=== PATIENT | female | born 1950 | race Caucasian/White ===

== ENCOUNTER 2016-10-13 10:39 | Inpatient (IN) | payer MEDICARE ==
[2016-10-13] MEDS ORDERED: ALPRAZolam 0.5 MG TAB PO PRN (11:07)
[2016-10-13] MEDS ORDERED: SODIUM CHLORIDE 0.9% 1,000 ML in EMPTY BAG 1 BAG IV ONE (11:07)
[2016-10-13] MEDS ORDERED: ASPIRIN 325 MG TAB PO STA (11:07)
[2016-10-13] MEDS ORDERED: ALPRAZolam 0.25 MG TAB PO PRN (11:07)
[2016-10-13] MEDS ORDERED: NITROGLYCERIN SL TABS 0.4 MG TAB SUBLINGUAL PRN ×2 (11:07→15:19)
[2016-10-13] MEDS ORDERED: ATORVASTATIN 80 MG TAB PO STA (11:07)
[2016-10-13] MEDS ORDERED: ALPRAZolam 0.25 MG TAB ONE (11:34)
[2016-10-13] MEDS ORDERED: HEPARIN SODIUM,PORCINE/D5W PMX 25,000 UNIT in DEXTROSE/WATER 1 500ML.BAG IV SCH (12:00)
--- NOTE | 2016-10-13 14:07 | P.HPIM ---
History of Present Illness H&P Date: 10/13/16 Chief Complaint: non-ST elevation OH post left heart catheterization with 2 vessel CAD This is a 66-year-old female one of Dr. Brownlee with a previous medical history significant for hypertension and hypertensive cardio vascular disease, history of chronic tobacco use and dependence with COPD, patient presented to the ER at [facility] because of the left jaw pain associated with chest pressure radiating to the left shoulder or left arm, patient went and saw Dr. 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 Review of Systems Constitutional: Denies anorexia, Denies chronic headaches, Denies lethargy, Denies malaise, Denies weakness, Denies weight gain, Denies weight loss Eyes: denies blurred vision, denies bulging eye, denies decreased vision, denies diplopia Ears: deny: decreased hearing Ears, nose, mouth and throat: Denies dental pain, Denies neck lump, Denies sore throat, Denies vertigo Cardiovascular: Reports chest pain, Reports decreased exercise tolerance, Reports dyspnea on exertion, Reports shortness of breath, Denies orthopnea, Denies paroxysmal nocturnal dyspnea, Denies phlebitis, Denies rapid heart beat, Denies syncope Respiratory: Denies congestion, Denies cough with sputum, Denies home oxygen, Denies sleep apnea, Denies snoring, Denies wheezing Gastrointestinal: Denies abdominal pain, Denies bloating, Denies BRBPR, Denies early satiety, Denies excessive gas, Denies melena, Denies nausea, Denies vomiting Genitourinary: Denies dysuria, Denies hematuria Musculoskeletal: Denies myalgias Musculoskeletal: absent: ankle pain, ankle stiffness, ankle swelling, elbow pain , elbow stiffness, elbow swelling, foot pain, foot stiffness, foot swelling, hand pain, hand stiffness, hand swelling, hip pain, hip stiffness, hip swelling , knee pain, knee stiffness, knee swelling, shoulder pain, shoulder stiffness, shoulder swelling, wrist pain, wrist stiffness, wrist swelling Integumentary: Denies pruritus, Denies rash Neurological: Denies numbness, Denies weakness Psychiatric: Denies anxiety, Denies depression Endocrine: Denies fatigue, Denies weight change Past Medical History Past Medical History: Coronary Artery Disease (CAD), COPD, Hyperlipidemia, Hypertension, Osteoarthritis (OA) Past Surgical History: Adenoidectomy, Tonsillectomy Additional Past Surgical History / Comment(s): Tubal with subsequent surgery Past Psychological History: No Psychological Hx Reported Smoking Status: Current every day smoker (Patient has smoked a pack every day for 45 years and says she has quit smoking when she came to the hospital.) Past Alcohol Use History: None Reported Past Drug Use History: Marijuana - Past Family History Mother Family Medical History: COPD (Mother at age of 71 from COPD.) Father Family Medical History: COPD (Father at age 53 from alcohol as him and oxygen use.) Brother(s) Family Medical History: No Reported History (Patient has one brother no major medical problems) Sister(s) Family Medical History: No Reported History (Patient has one sister no major medical problems.) Medications and Allergies Home Medications Medication Instructions Recorded Confirmed Type Aspirin 81 mg PO DAILY 10/13/16 10/13/16 History Metoprolol Succinate (ER) [Toprol 25 mg PO DAILY 10/13/16 10/13/16 History Xl] Naproxen Sodium [Aleve] 220 mg PO Q12HR PRN 10/13/16 10/13/16 History Allergies Allergy/AdvReac Type Severity Reaction Status Date / Time Sulfa (Sulfonamide Allergy Rash/Hives Verified 10/13/16 11:36 Antibiotics) Physical Exam Vitals: Vital Signs Temp Pulse Resp BP Pulse Ox 10/13/16 12:03 157/82 10/13/16 11:41 98.5 F 63 16 181/90 99 Intake and Output 10/12/16 10/13/16 10/13/16 22:59 06:59 14:59 Other: Weight 75.296 kg Patient Weight 10/14/16 06:59 Weight 75.296 kg - Constitutional General appearance: average body habitus, no acute distress - EENT Eyes: anicteric sclerae, EOMI, PERRLA, no ptosis, no scleral icterus, normal appearance ENT: hearing grossly normal, NA/AT, normal oropharynx, no thrush Ears: bilateral: normal - Neck Neck: no lymphadenopathy, normal ROM, no stridor, no thyromegaly Carotids: bilateral: upstroke normal Thyroid: bilateral: normal size - Respiratory Respiratory: bilateral: diminished, negative: dullness, rales, rhonchi, wheezing , prolonged expiration, prolonged inspiration - Cardiovascular Rhythm: regular Heart sounds: normal: S1, S2 Abnormal Heart Sounds: systolic murmur, no rub, no S3 Gallop, no click - Gastrointestinal General gastrointestinal: normal bowel sounds, soft, no splenomegaly, no tenderness, no umbilical hernia, no ventral hernia - Integumentary Integumentary: normal, normal turgor - Neurologic Neurologic: CNII-XII intact - Musculoskeletal Musculoskeletal: strength equal bilaterally - Psychiatric Psychiatric: A&O x's 3, appropriate affect, intact judgment & insight Thrombosis Risk Factor Assmnt - DVT/VTE Prophylaxis DVT/VTE Prophylaxis: Pharmacologic Prophylaxis ordered, Mechanical Prophylaxis ordered Assessment and Plan Plan: assessment and plan: 1. Non-ST elevation OH post left heart catherization that showed two-vessel CAD of the RCA with a thrombus and LCx.. Patient is scheduled to go for of the RCA with thrombus extraction, Dr. Vitale will do the procedure, patient is aware of the diagnosis as well as the intervention. She will be maintained on aspirin, Plavix, beta lucía, Lipitor 80 mg once every day, total lifestyle changes and risk factor modification including smoking cessation. 2. Hypertension and hypertensive cardiovascular disease. Continue patient on Toprol. 3. Chronic tobacco use and dependence. Smoking cessation and counseling. 4. DVT prophylaxis. Continue bilateral SCDs and bilateral knee-high AUDRA hose. 5. GI prophylaxis. Continue patient on PPI. 6. Patient is full code. 7. Admit to inpatient. Estimate length of stay 2 midnights.
[2016-10-13] MEDS ORDERED: PRASUGREL 10 MG TAB PO ONE (14:25)
[2016-10-13] MEDS ORDERED: fentaNYL (PF) 50 MCG/ML 2 ML AMP IV ONE (14:28)
[2016-10-13] MEDS ORDERED: diphenhydrAMINE 50 MG/ML 1 ML VIAL IVP ONE (14:28)
[2016-10-13] MEDS ORDERED: LIDOCAINE 2% INJ 20 MG/ML SQ ONE (14:34)
[2016-10-13] MEDS ORDERED: BIVALIRUDIN BOLUS 250 MG/50 ML IV ONE (14:35)
[2016-10-13] MEDS ORDERED: BIVALIRUDIN 250 MG in SODIUM CHLORIDE 0.9% 50 ML IV ONE (14:36)
[2016-10-13] MEDS: NITROGLYCERIN 1000MCG/10ML SYRINGE INTRACORON ONE ×2 (14:39→14:57)
[2016-10-13] MEDS ORDERED: IOHEXOL 350 MG/ML 125ML BOTTLE INJ ONE (15:13)
[2016-10-13] MEDS ORDERED: MAG HYDROX/AL HYDROX/SIMETH 30 ML CUP PO PRN (15:19)
[2016-10-13] MEDS ORDERED: ATROPINE SULFATE 0.1 MG/ML 10ML SYRINGE IV PRN (15:19)
[2016-10-13] MEDS ORDERED: RX INFO: IV CONTRAST WAS GIVEN 1 EACH MISC MISCELLANE PRN (15:19)
[2016-10-13] MEDS ORDERED: SODIUM CHLORIDE 0.9% 1,000 ML IV SCH (15:30)
[2016-10-13] MEDS ORDERED: HYDROmorphone 1 MG/ML 1 ML SYRINGE IVP STA (16:03)
[2016-10-13] MEDS ORDERED: LISINOPRIL 5 MG TAB PO STA (16:04)
[2016-10-13] MEDS ORDERED: ZOLPIDEM 5 MG TAB PO PRN (21:00)
[2016-10-13] MEDS: LISINOPRIL 5 MG TAB PO SCH (21:06)
[2016-10-14 06:46] LABS: Anion Gap 8 mmol/L; Blood Urea Nitrogen 18 mg/dL (7-17); Calcium 9.2 mg/dL (8.4-10.2); Carbon Dioxide 20 mmol/L (22-30); Chloride 109 mmol/L (98-107); Glucose 86 mg/dL (74-99); Non-African American GFR(MDRD) 50 (>60 ml/min/1.73 sqM); Potassium 4.5 mmol/L (3.5-5.1); Sodium 137 mmol/L (137-145)
[2016-10-14 08:22] VITALS: BP 125/58; PULSE 80; RESP 20; TEMP 97
[2016-10-14] MEDS: LISINOPRIL 5 MG TAB PO SCH (08:26)
[2016-10-14] MEDS ORDERED: METOPROLOL SUCCINATE (ER) 25 MG TAB.ER.24H PO SCH (09:00)
[2016-10-14] MEDS ORDERED: PRASUGREL 10 MG TAB PO SCH (09:00)
[2016-10-14] MEDS ORDERED: ASPIRIN 81 MG CHEW PO SCH (09:00)
--- NOTE | 2016-10-14 09:33 | PTCA ---
Mrs. Hooks is a 66 year old female with known history of chronic tobacco use who presented to the hospital at [facility] with symptoms of chest discomfort with mild troponin elevation. She underwent cardiac catheterization by Dr. Gonzalez and was found to have significant obstructive disease involving the mid right coronary artery and the mid left circumflex extending into the first obtuse marginal branch. In view of that, recommendations was made regarding angioplasty and stenting. The procedure as well as risks and complications were discussed with the patient who is in full understanding and agreement. PROCEDURE: The patient was brought to the cath lab tech in a fasting semi-sedated state after receiving Fentanyl and Benadryl and achieving moderate conscious sedated state, using guidewire exchange technique, the 6 Qatari sheath was introduced into a new 6 Qatari sheath. Following that, a 6 Qatari FR4 guiding catheter was introduced into the system. After cannulating the right coronary ostium, a 0.014 balance medium weight J wire was advanced across the lesion and positioned distally. Then a 3.0 x 15 mm Xience alpine stent was deployed. It was dilated at 14 atmospheres. After the last inflation, after appropriate wait , the balloon and the guidewire were withdrawn back in the guiding catheter. Images were obtained, repeated. Those images revealed stable successful stenting. At that point, the guiding catheter, the balloon and the guidewire were removed and a 6 Qatari FR4 guiding catheter were introduced into the system. After cannulating the left main, a 0.14 balanced medium weight J wire was advanced across the lesion, positioned in the distal left circumflex obtuse marginal branch and then a 3.0 x 12 mm Xience Alpine stent was deployed. It was dilated at 14 atmospheres. Following that, the balloon was removed and a 2.5 x 8 mm Xience alpine stent was deployed distal to the first one and it was dilated at 14 atmospheres. An inflation overlap segment of 16 atmospheres were done. Following that, the balloon and the guidewire were withdrawn back in the guiding catheter. Images were obtained, repeated. Those images revealed stable successful stenting. At that point, the guiding catheter, the balloon and the guidewire were removed. The sheath was removed. Hemostasis was obtained with deployment of an Angio-Seal. There were no immediate complications. The patient was returned to her room in stable condition. Of note, the patient received Angiomax per protocol as well as oral loading dose of Effient. She had chest discomfort and EKG changes with the inflations that resolved at the end of the procedure. IMPRESSION: 1. Successful stenting of the mid right coronary artery with reduction of stenosis from 90% to 0%. 2. Successful stenting of the mid left circumflex and first obtuse marginal branch with reduction of stenosis from 90% to 0%. RECOMMENDATIONS: The patient will be continued on aspirin, Effient, beta lucía, félix inhibitor and statin. The importance of smoking cessation was discussed with the patient and her family who is in full understanding and agreement. The duration of the procedure 37 minutes. ANJELICAD
--- NOTE | 2016-10-14 09:36 | MISC ---
Dear Dr. Brownlee: I had the pleasure of performing angioplasty and stenting on Mrs. Hooks at [facility] on the september and a fully copy of procedure note will be forwarded to you. In brief, she underwent successful stenting of her mid right coronary artery and mid left circumflex using drug eluting stent. I am hopeful that this procedure will stabilize her status. Thank you again for allowing me to participate in her care. Please feel free to call for any questions. Sincerely, JACLYN
--- NOTE | 2016-10-14 11:25 | PN ---
Mrs. Hooks is a 66-year-old female who presented to [facility] with a non-STEMI. Underwent cardiac catheterization and was found to have significant obstructive coronary artery disease involving the left circumflex and the right coronary artery and underwent stenting of both vessels yesterday. She is doing well this morning. Ambulating without difficulty, denying and chest pain. Denies any dizziness or palpitation. She continues to be on aspirin once a day, Lipitor 80 mg daily, lisinopril 5 mg twice a day, metoprolol succinate 25 mg daily, Effient 10 mg daily. PHYSICAL EXAMINATION: Blood pressure 125/58 with the heart rate in the 80s. LUNGS: Clear. HEART: Regular rate and rhythm. S1, S2, no S3, no rub. ABDOMEN: Soft, nontender. EXTREMITIES: No edema. RIGHT GROIN: No hematoma. Lab data revealed a BUN and creatinine of 18 and 1.1. Potassium 4.5. Her EKG ( ) T wave inversion in the inferolateral leads. IMPRESSION: 1. Status post non-ST elevation myocardial infarction with stenting of the left circumflex and the right coronary artery. 2. Hypertension. 3. Chronic tobacco use. RECOMMENDATION: The patient should be able to be discharged home today and followed as an outpatient by Dr. Barron. JACLYN
--- NOTE | 2016-10-14 12:59 | P.DS ---
Providers Date of admission: 10/13/16 10:45 Expected date of discharge: 10/14/16 Attending physician: Genaro Soni Consults: 10/13/16 15:19 Consult Physician Routine Consulting Provider: [facility] Consult Reason/Comments: Post Interventional patient Do you want consulting provider notified?: Already Contacted Primary care physician: Stated None Hospital Course: This is a 66-year-old female one of Dr. Brownlee with a previous medical history significant for hypertension and hypertensive cardio vascular disease, history of chronic tobacco use and dependence with COPD, patient presented to the ER at [facility] because of the left jaw pain associated with chest pressure radiating to the left shoulder or left arm, patient went and saw Dr. 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 10/14: Patient underwent successful stenting of the mid right coronary artery and mid left circumflex using drug-eluting stent by Dr. France. Patient has been chest pain free, no shortness of breath, no lightheadedness or dizziness and will be discharged home today in stable condition Discharge diagnoses: 1. Non-ST elevation MS post left heart catherization that showed two-vessel CAD of the RCA with a thrombus and LCx. 2. Hypertension and hypertensive cardiovascular disease. 3. Chronic tobacco use and dependence. Discharge plan: Return home Impression and plan of care have been directed as dictated by the signing physician. Kim Alfonso nurse practitioner acting as scribe for signing physician. Cc: Dr. Cassius Brownlee Patient Condition at Discharge: Good Plan - Discharge Summary New Discharge Prescriptions: New Atorvastatin [Lipitor] 80 mg PO HS #90 tab Lisinopril [Zestril] 5 mg PO BID #180 tab Nitroglycerin Sl Tabs [Nitrostat] 0.4 mg SUBLINGUAL Q5M PRN #25 tab PRN Reason: Chest Pain Prasugrel [Effient] 10 mg PO DAILY #90 tab Continue Aspirin 81 mg PO DAILY Metoprolol Succinate (ER) [Toprol XL] 25 mg PO DAILY #90 Discontinued Naproxen Sodium [Aleve] 220 mg PO HS Discharge Medication List Aspirin 81 mg PO DAILY 10/13/16 [History] Atorvastatin [Lipitor] 80 mg PO HS #90 tab 10/14/16 [Rx] Lisinopril [Zestril] 5 mg PO BID #180 tab 10/14/16 [Rx] Metoprolol Succinate (ER) [Toprol XL] 25 mg PO DAILY #90 10/14/16 [Rx] Nitroglycerin Sl Tabs [Nitrostat] 0.4 mg SUBLINGUAL Q5M PRN #25 tab 10/14/16 [Rx ] Prasugrel [Effient] 10 mg PO DAILY #90 tab 10/14/16 [Rx] Follow up Appointment(s)/Referral(s): Jimbo Barron MD [STAFF PHYSICIAN] - 10/16/16 9:30 am Cassius Brownlee MD [REFERRING] - 1 Week (I AM UNABLE TO MAKE AN APPOINTMENT, PLEASE CALL OFFICES TO MAKE FOLLOW UP APPOINTMENT) Patient Instructions/Handouts: Myocardial Infarction (DC), Heart Healthy Diet ( DC), Cardiac Rehabilitation (DC), Heart Catheterization (DC) Discharge Disposition: HOME SELF-CARE
[2016-10-14] MEDS ORDERED: ATORVASTATIN 80 MG TAB PO SCH (21:00)
== END 2016-10-14 11:12 | disposition home or self-care (01) | DRG 247 ==
LOC: 6ICU 10:45 → 6SEL 14:01
PROVIDERS: ADMIT Internal Medicine; ATTEND Internal Medicine
PROC: B2111ZZ Fluoroscopy of Multiple Coronary Arteries using Low Osmolar Contrast (ICD-10-PCS; 2016-10-13)
PROC: 027136Z Dilation of Coronary Artery, Two Arteries with Three Drug-eluting Intraluminal Devices, Percutaneous Approach (ICD-10-PCS; principal; 2016-10-13 14:15)
PROC: 4A023N7 Measurement of Cardiac Sampling and Pressure, Left Heart, Percutaneous Approach (ICD-10-PCS; 2016-10-13 14:15)
DX: I21.4 Non-ST elevation (NSTEMI) myocardial infarction (principal); I11.9 Hypertensive heart disease without heart failure; J44.9 Chronic obstructive pulmonary disease, unspecified; I25.10 Atherosclerotic heart disease of native coronary artery without angina pectoris; E78.5 Hyperlipidemia, unspecified; M19.90 Unspecified osteoarthritis, unspecified site; F17.200 Nicotine dependence, unspecified, uncomplicated; F12.90 Cannabis use, unspecified, uncomplicated; Z79.899 Other long term (current) drug therapy; Z79.82 Long term (current) use of aspirin; Z82.5 Family history of asthma and other chronic lower respiratory diseases; Z88.2 Allergy status to sulfonamides; Z79.1 Long term (current) use of non-steroidal anti-inflammatories (NSAID); Z81.1 Family history of alcohol abuse and dependence; Z71.6 Tobacco abuse counseling
CPT/HCPCS: 80048

== ENCOUNTER → 2017-02-07 | Outpatient (CLI) | payer MEDICARE ==
[2017-02-07 16:37] LABS: Blood Urea Nitrogen 22 mg/dL (7-17); Non-African American GFR(MDRD) 56 (>60 ml/min/1.73 sqM)
--- NOTE | 2017-02-07 17:16 | CT ---
EXAMINATION TYPE: CT angio neck DATE OF EXAM: 02/07/2017 HISTORY: ABNORMAL US. COMPARISON: NONE CT DLP: 274.6 mGycm. Automated Exposure Control for Dose Reduction was Utilized. TECHNIQUE: CTA scan of the neck is performed without and with IV Contrast, patient injected with 65 mL of Omnipaque 350, axial images are obtained, coronal and sagittal reformatted images are reviewed. Three-D reconstructed images are created on an independent workstation and reviewed. FINDINGS: There is some atherosclerotic plaque in the aortic arch and in the proximal left subclavian artery. T here is patency of the common internal and external carotid arteries bilaterally. There is plaque for mation at the right carotid artery bifurcation and approximately 60% luminal stenosis. I see no signi ficant plaque formation on the left side. There is arterial flow in both vertebral arteries. There is arterial flow in the vertebrobasilar dk ry system. There is bilateral internal carotid artery flow at the skull base. The origins of the vert ebral arteries appear widely patent. There is no evidence of carotid or vertebral artery dissection. CONCLUSION: Atherosclerotic plaque at the origin left subclavian artery with approximately 25% stenosis. There is approximate 60% stenosis due to plaque formation at the right internal carotid artery origin . There is a 1.5 cm segment of plaque formation at the posterior wall of the right carotid artery bif urcation. No evidence of any significant stenosis in the left carotid artery.
== END | disposition home or self-care (01) ==
LOC: RADCTMAIN 16:03
PROVIDERS: ATTEND Internal Medicine Clinical Cardiac Electrophysiology
DX: I65.21 Occlusion and stenosis of right carotid artery (principal); I70.8 Atherosclerosis of other arteries; I10 Essential (primary) hypertension
CPT/HCPCS: 82565; 84520; 70498; 36415; Q9967

== ENCOUNTER → 2017-04-14 | Outpatient (CLI) | payer MEDICARE ==
[2017-04-14 10:58] LABS: Anion Gap 10 mmol/L; Blood Urea Nitrogen 16 mg/dL (7-17); Carbon Dioxide 27 mmol/L (22-30); Chloride 106 mmol/L (98-107); Glucose 117 mg/dL (74-99); Potassium 4.7 mmol/L (3.5-5.1); Sodium 143 mmol/L (137-145)
== END | disposition home or self-care (01) ==
LOC: LABWHC1 10:23
PROVIDERS: ATTEND Internal Medicine Clinical Cardiac Electrophysiology
DX: I10 Essential (primary) hypertension (principal); I25.10 Atherosclerotic heart disease of native coronary artery without angina pectoris
CPT/HCPCS: 36415; 80048

== ENCOUNTER → 2020-02-27 | Outpatient (CLI) | payer MEDICARE ==
--- NOTE | 2020-02-27 15:37 | CT ---
EXAMINATION TYPE: CT angio neck DATE OF EXAM: 02/27/2020 HISTORY: Carotid bruit COMPARISON: 02/07/2017 CT DLP: 214.3 mGycm. Automated Exposure Control for Dose Reduction was Utilized. TECHNIQUE: CTA scan of the neck is performed with IV Contrast, patient injected with 65 mL of Isovue 370, axial images are obtained, coronal and sagittal reformatted images are reviewed. Three-D recons tructed images are created on an independent workstation and reviewed. FINDINGS: Emphysematous changes are seen involving the lung apices. There is focal atherosclerotic plaque near the origin of the right subclavian artery measuring approx imately 50%. Right common carotid artery origin is patent. There is atherosclerotic change involving the aortic arch. Within the proximal left subclavian artery there is approximately 50-60% stenosis. There is a severe to critical stenosis involving the right carotid bifurcation and proximal right ICA measuring approximately 90%. Originates at the level of carotid bulb and extends in the proximal ICA . Atherosclerotic plaque is both soft and calcified plaque. The left carotid bifurcation demonstrates wide patency with no significant stenosis. Visualized intracranial structures demonstrate normal enhancement with intracranial atherosclerotic c hange involving the carotid arteries bilaterally. Vertebral basilar system is somewhat diminutive in size. Vertebral arteries are fairly symmetric with slight left-sided dominance but appear to be patent. Incidental note is made of degenerative change of the spine with probable canal stenosis at multiple levels. Partially empty sella turcica noted. Report called to referring clinician by telephone. IMPRESSION: 1. There is a severe to critical stenosis of the proximal right ICA measuring approximately 90%. 2. There is bilateral subclavian atherosclerotic disease measuring approximately 50% on the right and 50-60% on the left. 3. COPD
== END | disposition home or self-care (01) ==
LOC: RADCTMAIN 12:46
PROVIDERS: ATTEND Internal Medicine
DX: I65.21 Occlusion and stenosis of right carotid artery (principal); I70.8 Atherosclerosis of other arteries; J44.9 Chronic obstructive pulmonary disease, unspecified; I65.8 Occlusion and stenosis of other precerebral arteries; Z86.79 Personal history of other diseases of the circulatory system; Z88.2 Allergy status to sulfonamides
CPT/HCPCS: 82565; 84520; 70498; 36415; Q9967

== ENCOUNTER 2021-08-06 08:49 | Emergency (ER) | payer MEDICARE ==
[2021-08-06 08:58] VITALS: RESP 18
--- NOTE | 2021-08-06 09:00 | ED ---
Fall HPI - General Stated Complaint: fall, on thinners Time Seen by Provider: 08/06/21 08:50 Source: patient, EMS, RN notes reviewed Mode of arrival: EMS - History of Present Illness Initial Comments: This is a 71-year-old female who presents to the emergency department after sustaining a fall. She is noted to be on Plavix and baby ASA. Patient's dog pulled her off her porch, causing the fall. She fell on her left arm and face. Denies any loss of consciousness. She has been unable to move her left arm after the fall. Also complains of pain in her left ribs. She did break her dentures during the fall and has an abrasion to the tip of her nose. Unclear when her last tetanus vaccine was. Denies any fevers, chills, sore throat, cough, dyspnea, chest pain, palpitations, abdominal pain, nausea, vomiting, diarrhea, or back pain. MD Complaint: fall Fall From: standing When Fall Occurred: [address] Fall Occurred: street Loss of Consciousness: none Location: head, face, chest Location - Extremities: Left: Arm - Related Data Home Medications Medication Instructions Recorded Confirmed Biotin 5 mg PO DAILY 08/06/21 08/06/21 Clopidogrel [Plavix] 75 mg PO DAILY 08/06/21 08/06/21 Lisinopril-Hctz 20-12.5 mg 1 tab PO DAILY 08/06/21 08/06/21 [Zestoretic 20-12.5] Multivitamins, Thera [Multivitamin 1 tab PO DAILY 08/06/21 08/06/21 (formulary)] Previous Rx's Medication Instructions Recorded Atorvastatin [Lipitor] 80 mg PO HS #90 tab 10/14/16 Metoprolol Succinate (ER) [Toprol 25 mg PO DAILY #90 10/14/16 XL] HYDROcodone/APAP 5-325MG [[place] 1 tab PO Q6HR PRN 3 Days #12 tab 08/06/21 5-325] Allergies Allergy/AdvReac Type Severity Reaction Status Date / Time Sulfa (Sulfonamide Allergy Rash/Hives Verified 08/06/21 11:14 Antibiotics) Review of Systems ROS Statement: Those systems with pertinent positive or pertinent negative responses have been documented in the HPI. ROS Other: All systems not noted in ROS Statement are negative. Past Medical History Past Medical History: Coronary Artery Disease (CAD), COPD, Hyperlipidemia, Hypertension, Osteoarthritis (OA) Past Surgical History: Adenoidectomy, Tonsillectomy Additional Past Surgical History / Comment(s): Tubal with subsequent surgery Past Psychological History: No Psychological Hx Reported Past Alcohol Use History: None Reported Past Drug Use History: Marijuana - Past Family History Mother Family Medical History: COPD (Mother at age of 71 from COPD.) Father Family Medical History: COPD (Father at age 53 from alcohol as him and oxygen use.) Brother(s) Family Medical History: No Reported History (Patient has one brother no major medical problems) Sister(s) Family Medical History: No Reported History (Patient has one sister no major medical problems.) General Exam General appearance: alert, in distress Head exam: Present: other (Ecchymosis and swelling to the chin) Respiratory exam: Present: normal lung sounds bilaterally. Absent: respiratory distress, wheezes, rales, rhonchi, stridor Cardiovascular Exam: Present: regular rate, normal rhythm, normal heart sounds. Absent: systolic murmur, diastolic murmur, rubs, gallop, clicks Left Shoulder Exam: Present: tenderness. Absent: full ROM (secondary to pain) Neurological exam: Present: alert, oriented X3, CN II-XII intact Psychiatric exam: Present: normal affect, normal mood Skin exam: Present: warm, dry, normal color, abrasion (Tip of the nose, no active bleeding.), other (Ecchymosis to the dorsal aspect of the left hand.) Course Vital Signs 08/06/21 08/06/21 08/06/21 08:51 10:09 11:38 Temperature 98.3 F Pulse Rate 70 71 71 Respiratory 18 18 18 Rate Blood Pressure 146/117 172/102 161/101 O2 Sat by Pulse 100 98 99 Oximetry Medical Decision Making - Medical Decision Making This is a 71-year-old female presents to the emergency department for a fall. Computed tomography scan of the head, neck, and facial bones obtained, as well as x-rays of the left upper extremity and chest obtained. Tetanus status updated. X-ray of the left shoulder reveals a displaced fracture of the left greater tuberosity proximal humerus. I spoke with [facility] who reviewed the imaging and advised she wear a sling and follow-up with Dr. North as an outpatient. Patient was able to set up an appointment for 1pm today. Computed tomography scan of the head, neck, and facial bones revealed no acute/actionable findings. Rx for [place] sent to the patient's pharmacy. She is advised to take this at night until she knows how it affects her. Recommended she apply ice to the injuries for the first 48-72 hours, followed by heat there afterwards. Return precautions reviewed in depth, the patient is instructed to return to the emergency department with any new, worsening, or concerning symptoms. Patient verbalized understanding. This case was discussed in detail with the attending ED physician. Presentation, findings, and treatment plan discussed in detail as well. - EKG Data EKG Comments: Normal sinus rhythm. Left axis deviation. Incomplete right bundle branch block. Ventricular rate 64 bpm, VT interval 156 ms, QRS duration 102 ms, QTC 435 ms. - Radiology Data Radiology results: report reviewed, image reviewed Disposition Clinical Impression: Fracture, humerus, great tuberosity Disposition: HOME SELF-CARE Instructions (If sedation given, give patient instructions): Fall Prevention for Older Adults (ED), Proximal Humerus Fracture (ED) Additional Instructions: Return to the emergency department with any new, worsening, or concerning symptoms. Contact orthopedics for a follow-up appointment. Take the [place] at night until you know how it affects you. Follow up with your primary care provider in 1-2 days. Prescriptions: HYDROcodone/APAP 5-325MG [[place] 5-325] 1 tab PO Q6HR PRN 3 Days #12 tab PRN Reason: Pain Is patient prescribed a controlled substance at d/c from ED?: Yes When asked, does pt state using other controlled substances?: No If prescribed controlled substance>3 days was MAPS reviewed?: Prescribed <3 Days Referrals: None,Stated [REFERRING] - 1-2 days
[2021-08-06] MEDS ORDERED: DIPH,PERTUS(ACELL)TETVAC-LF 0.5 ML VIAL IM ONE (09:02)
[2021-08-06] MEDS ORDERED: MORPHINE SULFATE 2 MG/ML SYRINGE IM STA (09:16)
--- NOTE | 2021-08-06 09:35 | XR ---
EXAMINATION TYPE: XR forearm LT DATE OF EXAM: 08/06/2021 COMPARISON: NONE HISTORY: Pain Two views of the forearm demonstrate that the osseous structures appear to be intact and the severe a rthropathy of the first carpal metacarpal joint.. There is no acute fracture or dislocation. IMPRESSION: 1. No acute fracture or dislocation
--- NOTE | 2021-08-06 09:35 | XR ---
EXAMINATION TYPE: XR chest 2V DATE OF EXAM: 08/06/2021 COMPARISON: NONE TECHNIQUE: PA and lateral views submitted. HISTORY: Pain FINDINGS: The lungs are clear and there is no pneumothorax, pleural effusion, or focal pneumonia. Density ove rlying the left hemithorax likely represents soft tissue artifact. There appears to be displaced frac ture of the left humeral head. Heart size is normal. There is ectasia of the aorta with hypertrophic and degenerative changes of the spine. IMPRESSION: 1. Displaced fracture proximal left humerus.
--- NOTE | 2021-08-06 09:39 | XR ---
EXAMINATION TYPE: XR shoulder complete LT DATE OF EXAM: 08/06/2021 COMPARISON: NONE HISTORY: Pain TECHNIQUE: Three views are submitted. FINDINGS: The osseous structures are intact. There is a displaced fracture involving the greater tuberosity of the proximal humerus. Mild hypertrophic change of the AC joint. Diffuse osteopenia.. The AC joint i s maintained. IMPRESSION: 1. Displaced fracture greater tuberosity proximal humerus.
--- NOTE | 2021-08-06 09:40 | XR ---
EXAMINATION TYPE: XR hand complete LT DATE OF EXAM: 08/06/2021 COMPARISON: NONE HISTORY: Pain TECHNIQUE: Three views are submitted. FINDINGS: The osseous structures are intact. Severe narrowing the first carpal metacarpal joint. Diffuse osteop enia with narrowing of the PIP, MCP and DIP joints of all digits. And there is no acute fracture or d islocation. IMPRESSION: 1. No definite acute fracture or dislocation if symptoms persist, follow-up study in 7 to 10 days wo uld be suggested. 2. Severe osteoarthritis.
--- NOTE | 2021-08-06 09:41 | XR ---
EXAMINATION TYPE: XR wrist complete LT DATE OF EXAM: 08/06/2021 COMPARISON: NONE HISTORY: Pain TECHNIQUE: Four views submitted. FINDINGS: The osseous structures are intact. Severe arthropathy first carpal metacarpal joint. And there is no acute fracture or dislocation. Diffuse osteopenia. IMPRESSION: 1. No definite acute fracture or dislocation if symptoms persist, follow-up study in 7 to 10 days wo uld be suggested to severe osteoarthritis first carpometacarpal joint.
--- NOTE | 2021-08-06 11:24 | CT ---
EXAMINATION TYPE: CT brain cspine wo con, CT facial bones wo con DATE OF EXAM: 08/06/2021 COMPARISON: CT dated 02/27/2020 HISTORY: Fall CT DLP: 964.8 (accession [id number]), In brain (accession [id number]) mGycm Automated exposure control for dose reduction was used. TECHNIQUE: CT scan of the head, facial bones and cervical spine are performed without contrast. FINDINGS: Suspected mild bilateral cerebral white matter chronic microvascular ischemic changes. Eben tray and soft tissue swelling overlying the symphysis menti. There is no acute intracranial hemorrhag e, mass effect, or midline shift identified. The ventricles and sulci are within normal limits in si ze. The globes are intact and the visualized sinuses are clear. Osteopenia. No definite acute facial bone or calvarial bone fracture identified. Retrolisthesis of C3 over C4, anterolisthesis of C4 over C5, retrolisthesis of C5 over C6, anterolist hesis of C6 over C7 and more obvious anterolisthesis of C7 over T1. No definite vertebral body collap se or acute displaced fracture. Unremarkable atlantoaxial and atlantooccipital articulations. Marked degenerative changes of the cervical spine most evident at C3-4, C5-6, C6-7 and C7-T1 levels. Multilevel spinal canal stenosis and neuroforaminal stenosis is also noted. COPD changes. Arterial at herosclerotic calcifications. IMPRESSION: 1. Hematoma/soft tissue swelling overlying the symphysis menti. 2. No definite acute intracranial posttraumatic sequela or acute calvarial bone fracture. 3. No definite facial bone fracture identified. 4. No evidence of acute traumatic bony injury of the cervical spine. 5. Degenerative changes of cervical spine and other incidental findings as described above.
--- NOTE | 2021-08-06 11:34 | CT ---
EXAMINATION TYPE: CT shoulder LT wo con DATE OF EXAM: 08/06/2021 COMPARISON: None available HISTORY: Fall, fracture CT DLP: 327.5 mGycm Automated exposure control for dose reduction was used. TECHNIQUE: Multiplanar CT scan of the left shoulder without IV contrast administration. 3-D reconstru ction images were generated on an independent workstation and reviewed. FINDINGS: Comminuted mildly displaced fracture of the lateral aspect of the humeral head mainly involving the g reater tuberosity with slight posterior displacement of the lateral fracture fragment and a gap up to 9 mm at the fracture site. Surrounding hematoma/soft tissue swelling. No extension of the fracture t o the humeral head articular surface. Milder nondisplaced fracture of the anterior aspect of the humeral head/lesser tuberosity. No other d efinite acute fracture identified. Mild degenerative changes of the acromioclavicular joint. Tiny gle noid osteophytosis. No humeral head dislocation. Maintained acromiohumeral distance. COPD changes of the left upper lung lobe. Scattered arterial atherosclerotic calcifications. IMPRESSION: Humeral head fracture as detailed above, for orthopedic consultation.
[2021-08-06 12:25] VITALS: BP 160/83; PULSE 74; TEMP 98.1
== END 2021-08-06 12:15 | disposition home or self-care (01) ==
LOC: EC 08:49
DX: S42.252A Displaced fracture of greater tuberosity of left humerus, initial encounter for closed fracture (principal); I10 Essential (primary) hypertension; J44.9 Chronic obstructive pulmonary disease, unspecified; Z88.2 Allergy status to sulfonamides; W54.1XXA Struck by dog, initial encounter
CPT/HCPCS: 93005; 73030; 73090; 73110; 73130; 71046; 72125; 70486; 70450; 73200; 90715; 99284; 96372; 90471; J2270

== ENCOUNTER → 2021-08-11 | Outpatient (CLI) | payer MEDICARE | END | disposition home or self-care (01) | LOC: LABWHC1 07:04 | PROVIDERS: ATTEND Orthopaedic Surgery | DX: S42.252A Displaced fracture of greater tuberosity of left humerus, initial encounter for closed fracture (principal); M25.512 Pain in left shoulder; M25.531 Pain in right wrist; X58.XXXA Exposure to other specified factors, initial encounter | CPT/HCPCS: 36415; 82306 ==

== ENCOUNTER 2021-12-30 07:30 | Inpatient (IN) | payer MEDICARE ==
[2022-01-12 11:45] VITALS: BMI 22.3
[2022-01-13] MEDS ORDERED: ALPRAZolam 0.25 MG TAB PO PRN (06:52)
[2022-01-13] MEDS ORDERED: ALPRAZolam 0.5 MG TAB PO PRN (06:52)
[2022-01-13] MEDS ORDERED: CLOPIDOGREL 75 MG TAB PO PRN (06:52)
[2022-01-13] MEDS ORDERED: SODIUM CHLORIDE 0.9% 1,000 ML in EMPTY BAG 1 BAG IV ONE (06:52)
[2022-01-13] MEDS ORDERED: NITROGLYCERIN SL TABS 0.4 MG TAB SUBLINGUAL PRN (06:52)
[2022-01-13] MEDS ORDERED: ASPIRIN 325 MG TAB PO PRN (06:52)
[2022-01-13] MEDS ORDERED: SODIUM CHLORIDE 0.9% 1,000 ML IV ONE (07:28)
[2022-01-13] MEDS ORDERED: LIDOCAINE 1% INJ 10MG/ML (30 ML VIAL-PF) SQ ONE (08:43)
[2022-01-13] MEDS: HEPARIN SODIUM 1,000 UN/ML (10ML VL) IV ONE ×5 (08:48→10:44)
[2022-01-13] MEDS ORDERED: RX INFO: IV CONTRAST WAS GIVEN 1 EACH MISC MISCELLANE PRN (09:00)
[2022-01-13] MEDS ORDERED: IOPAMIDOL-250 100ML BTL INTRAARTER ONE ×2 (09:30→11:22)
[2022-01-13] MEDS ORDERED: ATROPINE SULFATE 0.1 MG/ML 10ML SYRINGE IV ONE (11:04)
[2022-01-13] MEDS ORDERED: PHENYLEPHRINE 10 MG/ML VIAL IV ONE (11:06)
[2022-01-13] MEDS ORDERED: NOREPINEPHRINE 4 MG in SODIUM CHLORIDE 0.9% 250 ML IV ONE (11:15)
[2022-01-13] MEDS ORDERED: MAG HYDROX/AL HYDROX/SIMETH 30 ML CUP PO PRN (11:27)
[2022-01-13] MEDS ORDERED: ATROPINE SULFATE 0.1 MG/ML 10ML SYRINGE IV PRN (11:27)
[2022-01-13] MEDS: NOREPINEPHRINE 4 MG in SODIUM CHLORIDE 0.9% 250 ML IV SCH (11:45)
--- NOTE | 2022-01-13 12:10 | IR ---
EXAMINATION TYPE: IR stent intravas non coronary DATE OF EXAM: 01/13/2022 COMPARISON: NONE HISTORY: Fluoroscopy time. Fluoroscopy was provided to the referring clinician.
[2022-01-13] MEDS: ACETAMINOPHEN TAB 325 MG TAB PO PRN ×2 (16:17→20:11)
[2022-01-13 16:24] LABS: Glucose,Whole Blood 71 mg/dL (70-110)
--- NOTE | 2022-01-13 20:25 | P.OP ---
Description of Procedure: DESCRIPTION OF PROCEDURE(S): PROCEDURES PERFORMED: Ascending aortic root angiography, selective right carotid angiography, right carotid stent with 8 x 6 x 30mm Xact carotid stent, post dilated with a 5.0 balloon INDICATION: Severe asymptomatic carotid artery stenosis CONSENT:I have discussed the risks, benefits and alternative therapies for the above-mentioned procedure and for both sedation/analgesia as well as necessary blood product administration, if indicated, as they pertain to this patient. The patient has indicated understanding and acceptance of the risks and procedures discussed. PROCEDURE: After the risks, benefits and alternatives of the above mentioned procedure explained in detail with the patient, informed consent was obtained. Patient was taken to the catheterization lab and prepped and draped in usual fashion. 1% lidocaine was used to anesthetize the right femoral area. A 6- Sammarinese sheath was placed in the right femoral artery using modified Seldinger technique. A 5-Sammarinese pigtail catheter was inserted to the ascending aorta and DSA imaging was obtained. Next using VTK catheter the proximal right common carotid artery was engaged and selective angiography was performed. Angiography showed severe 90% ARNAV stenosis and therefore intervention was recommended. Heparin was given for ACT greater than 250. Next a 0.035 glide advantage was advanced into the left external carotid artery. The aortic arch was noted to be Type 3 and therefore had significant difficulty advancing any equipment or catheters into the innominate with catheters prolapsing out. Attempts were made at advancing down the right subclavian and brachial artery with BP cuff up however still difficulty. Therefore the decision was made to upgrade to an 8Fr destination sheath. In the 8Fr sheath, a 8Fr FR4 catheter was used. After multiple attempts, we were able to advance a 0.035 stiff glide into the right subclavian down the brachial. With BP cuff inflated to help stabilize wire, we were able to advance the FR4 guide into the innominate. Next a 0.035 glide advantage was advanced into the right external carotid artery. We were still unable to easily advance catheter up and therefore a 4mm balloon was advanced into the proximal external carotid artery and gently inflated to help anchor the wire. With balloon inflated we were able to advance the sheath to the mid common carotid artery. Next a 0.014 Embo shield distal embolic protection device was advanced into the petrous portion of the right internal carotid artery. The filter was then deployed. Next predilation was performed with a 4.0 x 20 mm balloon. Next a 8 x 6 x 30 mm Xact carotid stent was deployed. The stent was postdilated with a 5.0 x 20 mm balloon. Pre-intervention there was 90% stenosis with uninhibited flow and postintervention there was <10% stenosis with uninhibited flow. A right femoral angiogram was performed and showed small vessel with diffuse disease and therefore decision was made to leave sheath in to be pulled once ACT lower. The patient tolerated the procedure well. Patient was transported back to the post catheterization holding area in stable condition however did have mild hypotension requiring low dose norepinephrine. ASCENDING AORTA: There is no significant aneurysm or stenosis. 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 Right common carotid: 30-40% ostial stenosis Right internal carotid artery: 90% stenosis Left common carotid: 10% ostial stenosis Left internal carotid artery: not fully imaged FINAL IMPRESSION: 1. 90% right internal carotid artery stenosis, status post carotid stent with 8 x 6 x 30mm Xact carotid stent, post dilated with a 5.0 balloon with excellent result PLAN: 1. Aggressive risk factor modification per most recent ACC/AHA guidelines. 2. Continue dual antiplatelets with aspirin and Plavix for minimum of 3 months. 3. Monitor for any hemodynamic or electrical instability.
[2022-01-13] MEDS ORDERED: ATORVASTATIN 80 MG TAB PO SCH (21:00)
[2022-01-14 04:15] LABS: Basophils % (A) 0 %; Eosinophils % (A) 1 %; HCT 25.9 % (34.0-46.0); Lymphocytes # (A) 1.5 k/uL (1.0-4.8); Lymphocytes % (A) 23 %; MCH 32.1 pg (25.0-35.0); MCHC 34.7 g/dL (31.0-37.0); MCV 92.4 fL (80.0-100.0); Mean Platelet Volume 8.2; Monocytes # (A) 0.5 k/uL (0-1.0); Monocytes % (A) 7 %; Neutrophils # (A) 4.3 k/uL (1.3-7.7); Neutrophils % (A) 67 %; Platelet Count 227 k/uL (150-450); RBC 2.81 m/uL (3.80-5.40); RDW 13.8 % (11.5-15.5); WBC 6.4 k/uL (3.8-10.6)
[2022-01-14 04:26] LABS: INR 1.1 (<1.2); Prothrombin Time 11.5 sec (9.0-12.0)
[2022-01-14 04:42] LABS: Calcium 8.2 mg/dL (8.4-10.2); Potassium 3.8 mmol/L (3.5-5.1); Total Bilirubin 0.8 mg/dL (0.2-1.3); Total Protein 4.9 g/dL (6.3-8.2)
[2022-01-14] MEDS ORDERED: Potassium Replacement Protocol 1 EACH MISC MISCELLANE PRN (04:55)
[2022-01-14] MEDS ORDERED: POTASSIUM CHLORIDE ER 20 MEQ TAB.ER PO SCH (05:00)
[2022-01-14 08:42] VITALS: TEMP 98.3
[2022-01-14] MEDS ORDERED: LISINOPRIL-HCTZ 20-12.5 MG 1 EACH TAB PO SCH (09:00)
[2022-01-14] MEDS ORDERED: MULTIVITAMINS, THERA 1 EACH TAB PO SCH (09:00)
[2022-01-14] MEDS ORDERED: CLOPIDOGREL 75 MG TAB PO SCH (09:00)
[2022-01-14] MEDS ORDERED: METOPROLOL SUCCINATE (ER) 25 MG TAB.ER.24H PO SCH (09:00)
[2022-01-14] MEDS ORDERED: ASPIRIN 81 MG PO SCH (09:00)
[2022-01-14] MEDS ORDERED: NON FORMULARY DRUG (Biotin [Biotin Disolve] 10,000 MCG Tablet) PO SCH (09:00)
[2022-01-14] MEDS: ACETAMINOPHEN TAB 325 MG TAB PO PRN (09:08)
[2022-01-14] MEDS: NOREPINEPHRINE 4 MG in SODIUM CHLORIDE 0.9% 250 ML IV SCH (12:08)
--- NOTE | 2022-01-14 12:18 | P.DS ---
Providers Date of admission: 01/13/22 07:17 Attending physician: Vineet Macdonald DO Consults: 01/13/22 11:27 Consult Physician Routine Consulting Provider: Vineet Macdonald Consult Reason/Comments: Post Interventional Patient Do you want consulting provider notified?: Already Contacted Primary care physician: Cassius Epps [facility] Course: Patient is a pleasant 71-year-old female with history of asymptomatic right carotid artery stenosis. She underwent angiogram which confirmed 90% right internal carotid artery stenosis on 01/13. Therefore recommendations for stenting which was performed 1019 with some difficulty given type III aortic arch. Patient did well with some mild hypotensive and required temporary norepinephrine however has been off of any vasopressors, hemodynamically and electrically stable. She denies any chest pain or pressure. She did have one episode of some confusion upon waking this morning however no neurologic deficits and appears more related to being in a new environment. Neurologic exam currently intact with groin sites normal and patient appears stable for discharge home 01/14. Plan - Discharge Summary Discharge Rx Participant: Yes New Discharge Prescriptions: No Action Atorvastatin [Lipitor] 80 mg PO HS #90 tab Metoprolol Succinate (ER) [Toprol XL] 25 mg PO DAILY #90 Multivitamins, Thera [Multivitamin (formulary)] 1 tab PO DAILY Lisinopril-Hctz 20-12.5 mg [Zestoretic 20-12.5] 1 tab PO DAILY Clopidogrel [Plavix] 75 mg PO DAILY Biotin [Biotin Disolve] 10,000 mcg PO DAILY Aspirin [Adult Low Dose Aspirin EC] 81 mg PO DAILY Discharge Medication List Atorvastatin [Lipitor] 80 mg PO HS #90 tab 10/14/16 [Rx] Metoprolol Succinate (ER) [Toprol XL] 25 mg PO DAILY #90 10/14/16 [Rx] Clopidogrel [Plavix] 75 mg PO DAILY 08/06/21 [History] Lisinopril-Hctz 20-12.5 mg [Zestoretic 20-12.5] 1 tab PO DAILY 08/06/21 [History] Multivitamins, Thera [Multivitamin (formulary)] 1 tab PO DAILY 08/06/21 [History] Aspirin [Adult Low Dose Aspirin EC] 81 mg PO DAILY 01/12/22 [History] Biotin [Biotin Disolve] 10,000 mcg PO DAILY 01/12/22 [History] Patient Instructions/Handouts: Carotid Artery Stent Placement (DC)
[2022-01-14 13:14] VITALS: BP 144/64; PULSE 71; RESP 17
== END 2022-01-14 13:41 | disposition home or self-care (01) | DRG 36 ==
LOC: 2ORMAIN 01-13 07:17 → 2SICU 01-13 15:06
PROVIDERS: ADMIT Internal Medicine; ATTEND Internal Medicine
PROC: B3101ZZ Fluoroscopy of Thoracic Aorta using Low Osmolar Contrast (ICD-10-PCS; 2022-01-13)
PROC: B3151ZZ Fluoroscopy of Bilateral Common Carotid Arteries using Low Osmolar Contrast (ICD-10-PCS; 2022-01-13)
PROC: B3181ZZ Fluoroscopy of Bilateral Internal Carotid Arteries using Low Osmolar Contrast (ICD-10-PCS; 2022-01-13)
PROC: 3E033XZ Introduction of Vasopressor into Peripheral Vein, Percutaneous Approach (ICD-10-PCS; 2022-01-13)
PROC: 037K34Z Dilation of Right Internal Carotid Artery with Drug-eluting Intraluminal Device, Percutaneous Approach (ICD-10-PCS; principal; 2022-01-13 08:30)
DX: I65.21 Occlusion and stenosis of right carotid artery (principal); I95.9 Hypotension, unspecified; Z28.310 Unvaccinated for COVID-19; Z79.02 Long term (current) use of antithrombotics/antiplatelets; Z79.82 Long term (current) use of aspirin; Z79.899 Other long term (current) drug therapy
CPT/HCPCS: 37215; 80053; 85025; 85610

== ENCOUNTER → 2022-01-07 | Outpatient (CLI) | payer MEDICARE ==
[2022-01-07 14:58] LABS: HCT 39.9 % (37.2-46.3); HGB 13.5 g/dL (12.0-15.0); MCHC 33.8 g/dL (32.0-37.0); MCV 91.7 fL (80.0-97.0); Mean Platelet Volume 10.1 fL (9.5-12.2); NRBC Per 100 WBC 0 /100 WBCS (0.0-0.0); Platelet Count 276 X 10*3/uL (140-440); RBC 4.35 X 10*6/uL (4.10-5.20); RDW 14.5 % (11.5-14.5); WBC 6.17 X 10*3/uL (4.50-10.00)
[2022-01-07 15:32] LABS: African American GFR (CKD) 58.9 (60.0-200.0); Anion Gap 11.4 mmol/L (10.00-18.00); Blood Urea Nitrogen 20.5 mg/dL (9.0-27.0); Carbon Dioxide 22.6 mmol/L (20.0-27.5); Non-African American GFR(CKD) 50.8 (60.0-200.0); Potassium 4.2 mmol/L (3.5-5.5)
== END | disposition home or self-care (01) ==
LOC: LABPAT 08:20
PROVIDERS: ATTEND Internal Medicine
DX: Z01.812 Encounter for preprocedural laboratory examination (principal); I65.21 Occlusion and stenosis of right carotid artery
CPT/HCPCS: 80051; 82565; 84520; 85027